=== PATIENT | female | born 1950 | race Caucasian/White ===

== ENCOUNTER 2016-11-30 17:25 | Outpatient (CLI) | payer OTHER ==
[~2016-11-30 17:25] MED LIST: ATENOLOL25 MG PO; ATORVASTATIN CA40 MG PO; LEVOTHYROXINE100 MCG PO; MULTIVITAMIN1 TAB PO; OMEPRAZOLE20 M1 PO
--- NOTE | 2016-11-30 17:58 | DIAGNOSTIC IMAGING REPORT ---
PROCEDURE: XR WRIST MIN 3 VIEWS - RIGHT INDICATION: INJURY TECHNIQUE: Four views of the right wrist. COMPARISON: None. FINDINGS: There is osteoarthritis involving the first carpal metacarpal joint. No fractures. No suspicious soft-tissue calcification or radiodense foreign bodies. IMPRESSION: 1. Osteoarthritis first carpal metacarpal joint.
== END 2016-11-30 23:00 | disposition home or self-care (01) ==
LOC: XR SRH 17:25
DX: M18.11 Unilateral primary osteoarthritis of first carpometacarpal joint, right hand (principal)